=== PATIENT | female | born 2000 | race American Indian/Alaskan Native ===

== ENCOUNTER 2020-09-27 15:00 | Emergency (ER) | payer SELFPAY ==
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
== END 2020-09-27 20:00 | disposition home or self-care (01) ==
LOC: ED 15:00
DX: M79.10 Myalgia, unspecified site (principal); R07.89 Other chest pain; Z79.899 Other long term (current) drug therapy; V49.49XA Driver injured in collision with other motor vehicles in traffic accident, initial encounter; Y93.89 Activity, other specified; Y92.488 Other paved roadways as the place of occurrence of the external cause; Y99.8 Other external cause status
CPT/HCPCS: 71046; 99283